=== PATIENT | female | born 1960 | race Caucasian/White ===

== ENCOUNTER 2024-08-05 23:38 | Emergency (ER) | payer MEDICARE, MEDICAID ==
[~2024-08-05] VITALS: Ht 170.2 cm; Wt 90.0 kg
[2024-08-06 00:01] VITALS: O2SAT 99
[2024-08-06] MEDS ORDERED: IBUP-2029 MT (02:18)
[2024-08-06] MEDS ORDERED: METH-653 MT (02:18)
[2024-08-06] MEDS: IBUPROFEN 600MG TABLET PO ONE (03:30)
[2024-08-06] MEDS: METHOCARBAMOL 500MG TABLET PO ONE (03:30)
[2024-08-06 03:31] VITALS: BP 152/68; PULSE 100; RESP 20; TEMP 36.7; O2SAT 99
== END 2024-08-06 03:31 | disposition home or self-care (01) ==
LOC: ER 23:38
DX: S09.90XA Unspecified injury of head, initial encounter (principal); S20.219A Contusion of unspecified front wall of thorax, initial encounter; V89.2XXA Person injured in unspecified motor-vehicle accident, traffic, initial encounter; Y93.89 Activity, other specified; Y92.410 Unspecified street and highway as the place of occurrence of the external cause; Y99.8 Other external cause status
CPT/HCPCS: 71045; 99284